=== PATIENT | female | born 1990 | race Caucasian/White ===

== ENCOUNTER 2019-07-19 10:41 | Emergency (ER) | payer SELFPAY ==
[~2019-07-19] VITALS: Ht 157.5 cm; Wt 64.9 kg
--- NOTE | 2019-07-19 11:00 | NUR ---
ERMD at bedside for MSE
[2019-07-19] MEDS ORDERED: LITH300T3 PO (11:09)
[2019-07-19] MEDS ORDERED: SERT50TA PO (11:09)
[2019-07-19] MEDS ORDERED: NALT50TA PO (11:09)
--- NOTE | 2019-07-19 11:20 | NUR ---
Provided patient with referrals for substance abuse
--- NOTE | 2019-07-19 11:20 | NUR ---
Patient discharged to home in stable conditon. Written and verbal after care instructions given. Patient verbalizes understanding of instructions. Patient ambulated with stable gait.
[2019-07-19 11:24] VITALS: BP 121/62
== END 2019-07-19 11:32 | disposition home or self-care (01) ==
LOC: ER 10:41
DX: F15.10 Other stimulant abuse, uncomplicated (principal); F31.9 Bipolar disorder, unspecified; Z79.899 Other long term (current) drug therapy
CPT/HCPCS: A4663